=== PATIENT | female | born 1965 | race Caucasian/White ===

== ENCOUNTER 2022-02-13 16:05 | Outpatient (REF) | payer OTHER, SELFPAY ==
[2022-02-13 17:40] LABS: Appearance Urine CLEAR; Color Urine YELLOW; Glucose Urine UA NEG (NEG); Leukocyte Esterase Urine NEG (NEG); Nitrite Urine NEG (NEG); Specific Gravity - Urine >= 1.030 (1.005-1.025); Urine Blood NEG (NEG); Urine Ketones NEG (NEG); Urine Protein NEG (NEG-TRACE)
== END 2022-02-13 16:06 | disposition home or self-care (01) ==
LOC: HO.LAB 16:05
PROVIDERS: PCP Internal Medicine; Visit Provider Internal Medicine Gastroenterology
DX: R30.0 Dysuria (principal); R10.2 Pelvic and perineal pain
CPT/HCPCS: 81003